=== PATIENT | female | born 1970 | race Caucasian/White ===

== ENCOUNTER 2016-12-06 10:20 | Day surgery (SDC) | payer BC ==
[~2016-12-06] VITALS: Ht 165.1 cm; Wt 71.3 kg
[2016-12-06 12:53] VITALS: Ht 165.1 cm; Wt 71.3 kg
[2016-12-06 13:14] VITALS: BP 122/58; PULSE 67; RESP 18
[2016-12-06] MEDS ORDERED: FENTAnyl 50 MCG/ML VIAL ONE (14:09)
[2016-12-06] MEDS ORDERED: PROPOFOL 20 ML ONE (14:09)
[2016-12-06] MEDS ORDERED: MIDAZOLAM 1 MG/ML 2 ML INJ ONE (14:10)
[2016-12-06 15:00] VITALS: BP 121/64; PULSE 66; RESP 19
--- NOTE | 2016-12-07 04:41 | GILP ---
DATE OF PROCEDURE: 12/06/2016 PROCEDURE: Colonoscopy with biopsies. BRIEF HISTORY AND INDICATIONS: The patient is being evaluated for hematochezia and also family hist ory of colon polyps. INSTRUMENT USED: Olympus colonoscope. PREPARATION: Adequate. TECHNIQUE: After informed consent, with the patient/relatives understanding the procedure, its indic ations potential risks and complications, including but not limited to: allergic reaction, bleeding, perforation, infection, missed lesions and after all pertinent questions were answered to the patie nt's satisfaction, the patient/relatives signed the witnessed informed consent. Following this, premedication was administered slowly IV push by under careful cardiovascular and re spiratory monitoring with pulse oximetry, automatic blood pressure and clinical research monitor. Once the sedativ e effect was achieved, the patient was placed in the left lateral decubitus position, digital rectal examination was performed. The colonoscope was then introduced and advanced under visual control th roughout all segments of the colon including: the rectum, sigmoid, descending colon, splenic flexure , transverse colon, hepatic flexure, ascending colon and finally reaching the cecum which was clearl y identified by transillumination, finger indentation and the ileocecal valve. Careful examination o f the mucosa of the lower gastrointestinal tract both on insertion as well as withdrawal of the inst rument disclosed the following findings: Rectal Examination: Showed moderate sized collapsed external hemorrhoids. Colonic Mucosa: The colonic mucosa is unremarkable with the exception of mild melanosis coli throug hout. The ileocecal valve was clearly identified and appears unremarkable. Once we reached the area of the cecum, the instrument was withdrawn, reexamining the mucosa in detail. No additional abnorm alities were identified with the exception of polypoid structure measuring approximately 1 cm at the hemorrhoidal plexus identified on retroflexion of the instrument in the rectal vault. Two biopsies were obtained with no significant bleeding. Moderate sized internal hemorrhoids are noted. The instrument was then withdrawn, the patient tolerated the procedure well and was transferred out of the Endoscopy Suite awake and in good condition to continue recovery under observation. IMPRESSION: 1. 1 cm polypoid structure at the anorectum area hemorrhoidal plexus of solid consistency. Biopsie s obtained. 2. Mild melanosis coli. 3. Moderate sized internal and external hemorrhoids. PLAN: The patient will be followed up as an outpatient. Pathology will be reviewed as soon as chavo nino. It may be advisable to remove the identified polypoid structure with transanal resection by qualified colorectal surgeon. Dictated By: DANETTE ARNOLD Conf#: [id number] DID#: [id number]
== END 2016-12-06 16:30 | disposition home or self-care (01) ==
LOC: GIL 10:20
PROVIDERS: ATTEND Internal Medicine Gastroenterology
DX: K92.1 Melena (principal); K64.4 Residual hemorrhoidal skin tags; K63.89 Other specified diseases of intestine; K64.8 Other hemorrhoids; Z83.71 Family history of colonic polyps; K62.1 Rectal polyp
CPT/HCPCS: 45380; 88305; J2250; J3010; Z7610

== ENCOUNTER 2017-03-22 10:03 | Day surgery (SDC) | payer BC ==
[2017-03-22] VITALS (14 sets, daily range): BP systolic 101–127; BP diastolic 53–71; PULSE 58–75; RESP 16; Ht 165.1 cm; Wt 70.5 kg
[~2017-03-22] VITALS: Ht 165.1 cm; Wt 70.5 kg
[2017-03-22] MEDS ORDERED: LIDOCAINE 1% (MPF) 30 ML INJ ONE (13:35)
[2017-03-22] MEDS ORDERED: MIDAZOLAM 1 MG/ML 2 ML INJ ONE (13:36)
[2017-03-22] MEDS ORDERED: FENTAnyl 50 MCG/ML VIAL ONE (13:36)
[2017-03-22] MEDS ORDERED: BUPIVACAINE 0.25% (MPF) 30 ML INJ ONE (14:00)
[2017-03-22] MEDS ORDERED: LIDOCAINE 2%/EPI (MDV) 20ML INJ ONE (14:02)
[2017-03-22] MEDS ORDERED: NEOSTIGMINE 3 MG/3 ML SYRINGE ONE (14:30)
[2017-03-22] MEDS ORDERED: ONDANSETRON 4 MG INJ IV PRN (14:30)
[2017-03-22] MEDS ORDERED: PROPOFOL 20 ML ONE (14:30)
[2017-03-22] MEDS ORDERED: ROCURONIUM 50 MG INJ ONE (14:30)
[2017-03-22] MEDS ORDERED: LIDOCAINE 2% (SDV) 5 ML INJ ONE (14:30)
[2017-03-22] MEDS ORDERED: MEPERIDINE 25 MG INJ IV PRN (14:30)
[2017-03-22] MEDS ORDERED: FENTAnyl 50 MCG/ML VIAL IV PRN (14:30)
[2017-03-22] MEDS ORDERED: morphine (1 MG/ML) 10ML SYRINGE IV PRN (14:30)
[2017-03-22] MEDS ORDERED: DIPHENHYDRAMINE 50 MG INJ IV PRN (14:30)
[2017-03-22] MEDS ORDERED: METOCLOPRAMIDE 10 MG INJ IV PRN (14:30)
[2017-03-22] MEDS ORDERED: GLYCOPYRROLATE 0.4 MG INJ ONE (14:30)
[2017-03-22] MEDS ORDERED: ONDANSETRON 4 MG INJ ONE (14:31)
[2017-03-22] MEDS ORDERED: CEFAZOLIN 1 GM INJ ONE (14:31)
[2017-03-22] MEDS ORDERED: metroNIDAZOLE 500 MG/NS (PMX) 100 ML IVPB ONE (14:31)
--- NOTE | 2017-03-22 14:40 | OPR ---
Date/Time of Note Date/Time of Note DATE: 03/22/17 TIME: 14:25 Operative Report Procedure Date: Mar 22, 2017 Preoperative Diagnosis Rectal polyp Postoperative Diagnosis Hypertrophied anal papilla, Internal/External Hemorrhoids Operation Performed 1. Rigid proctosigmoidoscopy 2. Internal/External hemorrhoidectomy (with removal of hypertrophied anal papilla) Surgeon: GEN CEDEÑO MD Anesthesia: general Estimated Blood Loss: 0 - 10 ml's Specimens Right anterior internal/external hemorrhoids with anal papilla Pt Condition Post Procedure: stable Disposition: PACU Indications Ms. Houston is a 46 y/o who presented with a prolapsing rectal polyp. Biopsies were benign at her recent colonoscopy. She presents for trans-anal excision of her rectal polyp. Informed consent obtained. Operative\\Procedure Findings Right anterior internal/external hemorrhoid with associated hypertrophied anal papilla Procedure Description The patient was brought to the operating room and while in the transportation gurney, general endotracheal anesthesia was established. Next, she was repositioned in the prone, ken-knife position on the operating room table. Her buttocks were then taped apart using the standard technique. Then, following a surgical "time out" and administration of perioperative antibiotics , her perineum and perianal skin were prepped and draped in the usual, sterile technique. A digital rectal examination was performed and this revealed a hypertrophied anal papilla in the right anterior quadrant. A rigid proctosigmoidoscopy was then performed to a distance of 14 cm from the anal verge. This revealed normal rectal mucosa. The proctoscope was removed without complication. Following this, an anal block was performed using a combination of 2% Lidocaine and 0.25% Marcaine with epinephrine. This 50:50 percent combination local anesthetic was injected into the subcutaneous tissue circumferentially at the anal verge. Next, after maximum anal sphincter relaxation, Stevens retractors were used to examine the patient's anal canal and distal rectum in more detail. This revealed the aforementioned anal papilla and an associated internal and external hemorrhoid in the right anterior quadrant. Next, a 3-0 chromic suture was used to ligate the base of the internal hemorrhoid approximately 4cm proximal to the dentate line. Next, the right anterior internal and external hemorrhoid as well as the associated anal papilla were excised using Bovie electrocautery. Care was taken to identify and protect the internal and external sphincter muscles. Next, the aforementioned chromic suture was used to close the defect in the rectal mucosa and anoderm created by the hemorrhoidectomy and anal papilla excision. Additional local anesthesia was injected a the hemorrhoidectomy edges. Once hemostasis was insured, the procedure was complete and the Stevens retractor was removed. Next, dry gauze was applied to the perianal skin and secured with paper tape. The buttock retraction was discontinued an the patient was moved to the [facility] in the supine position. Anesthesia was discontinued and the patient was extubated in the OR without complication. She was transferred to the PACU in stable condition. She was given standard post anorectal surgery recovery instructions and prescriptions for Toradol and [place] for pain. She was instructed to follow up with Dr. Cedeño in 1 week in his office. GEN CEDEÑO MD Mar 22, 2017 14:40
== END 2017-03-22 16:52 | disposition home or self-care (01) ==
LOC: SDS 10:03
PROVIDERS: ATTEND Colon & Rectal Surgery
DX: K62.1 Rectal polyp (principal); K64.8 Other hemorrhoids; K64.4 Residual hemorrhoidal skin tags
CPT/HCPCS: 45300; 46260; 84703; 88304; J0690; J2175; J2250; J2405; J2710; J3010; Z7512; Z7610